=== PATIENT | female | born 1960 | race Caucasian/White ===

== ENCOUNTER → 2016-12-12 | Outpatient (CLI) | payer BC ==
--- NOTE | 2016-12-12 13:46 | VAS ---
HISTORY: Extremity pain, swelling, and edema Study: Left lower extremity Doppler venous ultrasound. TECHNIQUE: Multiple parker scale and color flow Doppler images of the deep venous system were obtaine d of the left lower extremity. FINDINGS: The deep venous system of the left lower extremity evaluated from the level of the common femoral ve in through the popliteal vein. Normal color flow and augmentation can be observed. In addition, no rmal compression is seen throughout the deep venous system. IMPRESSION: 1. Negative examination for DVT. Reported By:
--- NOTE | 2016-12-12 13:52 | VAS ---
HISTORY: Stenosis, dizziness, blurred vision. Study: Carotid duplex Doppler ultrasound. Comparison: None available. Technique: Multiple pakrer scale and color flow Doppler images of the right and left carotid arterial system were obtained. The vertebral arterial system was evaluated as well. Findings: Normal color flow Doppler is seen throughout the right and left carotid arterial system. Minor athe romatous plaque formation is noted in the carotid systems bilaterally. No hemodynamically significan t stenosis is seen based on velocity criteria. The right and left vertebral arteries demonstrate an tegrade flow. IMPRESSION: 1. No hemodynamically significant stenosis. Reported By:
== END ==
LOC: RAD 12:45
PROVIDERS: ATTEND Internal Medicine
DX: R60.0 Localized edema (principal); I65.23 Occlusion and stenosis of bilateral carotid arteries
CPT/HCPCS: 93880; 93971

== ENCOUNTER → 2016-12-28 | Outpatient (CLI) | payer BC | END | disposition home or self-care (01) | DRG 309 | LOC: RAD 14:02 | PROVIDERS: ATTEND Internal Medicine | DX: R00.2 Palpitations (principal); G47.33 Obstructive sleep apnea (adult) (pediatric); I50.1 Left ventricular failure, unspecified; I51.7 Cardiomegaly | CPT/HCPCS: 93306 ==